=== PATIENT | female | born 1965 | race Caucasian/White ===

== ENCOUNTER 2016-05-28 15:16 | Emergency (ER) | payer BC ==
[~2016-05-28] VITALS: Ht 157.5 cm; Wt 84.0 kg
[2016-05-28] MEDS ORDERED: IBUPROFEN 600MG TABLET PO ONE (16:45)
[2016-05-28 18:10] VITALS: BP 124/78
== END 2016-05-28 19:31 | disposition home or self-care (01) ==
LOC: ER 15:23
DX: M54.5 Low back pain (principal); M25.562 Pain in left knee; M25.561 Pain in right knee; M79.641 Pain in right hand; V79.59XA Passenger on bus injured in collision with other motor vehicles in traffic accident, initial encounter; Y93.89 Activity, other specified; Y92.414 Local residential or business street as the place of occurrence of the external cause; M43.17 Spondylolisthesis, lumbosacral region; G95.89 Other specified diseases of spinal cord; F17.210 Nicotine dependence, cigarettes, uncomplicated
CPT/HCPCS: 72100; 73130; 99284